=== PATIENT | male | born 1955 | race Asian ===

== ENCOUNTER 2021-11-20 13:36 | Emergency (ER) | payer MEDICARE, OTHER ==
[~2021-11-20] VITALS: Ht 182.9 cm; Wt 64.5 kg
[2021-11-20 13:44] VITALS: BP 152/57
[2021-11-20] MEDS ORDERED: ACETAMINOPHEN 325 MG TABLET PO ONE (14:30)
[2021-11-20] MEDS ORDERED: LIDOCAINE 5% TRANSDERMAL PATCH TD ONE (14:30)
[2021-11-20] MEDS ORDERED: IBUPROFEN 400 MG TABLET PO ONE (14:30)
== END 2021-11-20 18:31 | disposition home or self-care (01) ==
LOC: EMS 13:39
DX: M54.50 Low back pain, unspecified (principal); F17.210 Nicotine dependence, cigarettes, uncomplicated; W01.198A Fall on same level from slipping, tripping and stumbling with subsequent striking against other object, initial encounter; Y93.89 Activity, other specified; Y92.89 Other specified places as the place of occurrence of the external cause; Y99.8 Other external cause status
CPT/HCPCS: 72170; 99284; Z7502; Z7610

== ENCOUNTER 2023-12-24 03:02 | Inpatient (IN) | payer MEDICARE, OTHER ==
[~2023-12-24] VITALS: Ht 188 cm; Wt 65.3 kg
[2023-12-24 03:37] LABS: BASOPHILS % (AUTO) 0.2 % (0.0-2.0); EOSINOPHILS % (AUTO) 2.9 % (1.0-6.0); HEMATOCRIT 41.4 % (41-53); HEMOGLOBIN 14.1 g/dL (13.5-17.5); LYMPHOCYTES # (AUTO) 2.9 K/uL (1.0-4.8); LYMPHOCYTES % (AUTO) 31.9 % (22.0-44.0); MEAN CORPUSCULAR HEMOGLOBIN 31.8 pg (26.0-34.0); MEAN CORPUSCULAR HGB CONC 34.1 G/dL (31.0-37.0); MEAN CORPUSCULAR VOLUME 93 fL (80-100); MONOCYTES # (AUTO) 0.4 K/uL (0.1-1.0); MONOCYTES % (AUTO) 4.7 % (2.0-9.0); NEUTROPHILS # (AUTO) 5.5 K/uL (1.8-7.7); NEUTROPHILS % (AUTO) 60.3 % (40.0-70.0); PLATELET COUNT (AUTO) 289 K/uL (150-450); RED BLOOD CELL COUNT(AUTO) 4.44 MIL/uL (4.50-5.90); RED CELL DISTRIBUTION WIDTH 13.1 % (11.5-14.5); WHITE BLOOD COUNT (AUTO) 9.1 K/uL (4.5-11.0)
[2023-12-24 03:45] LABS: ANION GAP 6 mmol/L (8-16); CALCIUM, TOTAL 9.2 mg/dL (8.8-10.5); CARBON DIOXIDE 31 mmol/L (22-29); CHLORIDE 102 mmol/L (98-107); CREATININE 0.74 mg/dL (0.60-1.30); GLOMERULAR FILTR. RATE CALC > 60 mL/min (>60); GLUCOSE,RANDOM 115 mg/dL (70-110); POTASSIUM 4.7 mmol/L (3.5-5.1); SODIUM SERUM 139 mmol/L (136-145); UREA NITROGEN, BLOOD 36 mg/dL (7-18)
[2023-12-24 03:51] LABS: ALANINE AMINOTRANSFERASE 20 U/L (12-78); ALBUMIN 3.7 g/dL (3.4-5.0); ALKALINE PHOSPHATASE 65 U/L (46-116); ASPARTATE AMINOTRANSFERASE 17 U/L (15-37); BILIRUBIN,TOTAL 0.3 mg/dL (0.1-1.0); CREATINE KINASE, TOTAL ONLY 43 U/L (39-308); TOTAL PROTEIN, SERUM 7.6 g/dL (6.4-8.2)
[2023-12-24 03:52] LABS: TROPONIN I-HIGH SENSITIVITY 16 ng/L (<76)
[2023-12-24 03:58] LABS: B-TYPE NATRIURETIC PEPTIDE 11 pg/mL (0-100)
[2023-12-24] MEDS: ACETAMINOPHEN 500 MG TABLET PO ONE (04:05)
[2023-12-24 04:12] LABS: LIPASE 39 U/L (16-77)
[2023-12-24] MEDS: FAMOTIDINE 20 MG/2 ML VIAL IVP ONE (04:22)
[2023-12-24] MEDS: MAG HYDROX/ALUMINUM HYD/SIMETH 30 ML SUSPENSION UDCUP PO ONE (04:24)
[2023-12-24] MEDS ORDERED: IOHEXOL 350 MG/ML 100 ML VIAL ONE (04:27)
[2023-12-24] MEDS ORDERED: SODIUM CHLORIDE 0.9% 100 ML ONE (04:27)
[2023-12-24 04:30] VITALS: BP 111/63; PULSE 74; RESP 20; TEMP 97.9
[2023-12-24 07:29] LABS: COVID AG,FIA SOURCE NASAL SWAB
[2023-12-24 07:51] LABS: SARS-COV2 (COVID) ANTIGEN,FIA Negative (Negative)
[2023-12-24 12:00] LABS: TROPONIN I-HIGH SENSITIVITY 13 ng/L (<76)
[2023-12-24] MEDS ORDERED: MORPHINE SULFATE 2 MG/ML SYRINGE IVP PRN (14:15)
[2023-12-24] MEDS ORDERED: ONDANSETRON HCL 4 MG/2 ML VIAL IVP PRN (14:15)
[2023-12-24] MEDS ORDERED: BISACODYL 10 MG RECTAL RECTAL SUPPOSITORY PR PRN (14:15)
[2023-12-24] MEDS ORDERED: ACETAMINOPHEN 325 MG TABLET PO PRN (14:15)
[2023-12-24] MEDS ORDERED: ZOLPIDEM TARTRATE 5 MG TABLET PO PRN (14:15)
[2023-12-24] MEDS ORDERED: MAGNESIUM HYDROXIDE SUSPENSION 30 ML UDCUP PO PRN (14:15)
[2023-12-24] MEDS: HEPARIN SODIUM,PORCINE 5,000 UNITS/ML VIAL SQ SCH (18:18)
[2023-12-24 18:53] LABS: TROPONIN I-HIGH SENSITIVITY 10 ng/L (<76)
[2023-12-24 20:00] VITALS: BP 116/67; PULSE 92; RESP 18; TEMP 98; O2SAT 99
[2023-12-24] MEDS: PANTOPRAZOLE SODIUM 40 MG/VIAL IVP SCH (21:46)
[2023-12-24] MEDS: DOCUSATE SODIUM 100 MG CAPSULE PO SCH (21:46)
[2023-12-25] VITALS: BP 105/62; PULSE 67; RESP 18; TEMP 97; O2SAT 97
[2023-12-25 00:09] VITALS: BP 108/55; PULSE 62; RESP 16; TEMP 97.8
[2023-12-25 05:35] VITALS: BP 105/67; PULSE 63; RESP 16; TEMP 97.9
[2023-12-25 07:08] LABS: BASOPHILS % (AUTO) 0.3 % (0.0-2.0); EOSINOPHILS % (AUTO) 5.7 % (1.0-6.0); HEMATOCRIT 36.8 % (41-53); HEMOGLOBIN 12.6 g/dL (13.5-17.5); LYMPHOCYTES # (AUTO) 2.7 K/uL (1.0-4.8); LYMPHOCYTES % (AUTO) 38.3 % (22.0-44.0); MEAN CORPUSCULAR HEMOGLOBIN 31.5 pg (26.0-34.0); MEAN CORPUSCULAR HGB CONC 34.2 G/dL (31.0-37.0); MEAN CORPUSCULAR VOLUME 92 fL (80-100); MONOCYTES # (AUTO) 0.4 K/uL (0.1-1.0); MONOCYTES % (AUTO) 5.8 % (2.0-9.0); NEUTROPHILS # (AUTO) 3.6 K/uL (1.8-7.7); NEUTROPHILS % (AUTO) 49.9 % (40.0-70.0); PLATELET COUNT (AUTO) 273 K/uL (150-450); RED BLOOD CELL COUNT(AUTO) 3.98 MIL/uL (4.50-5.90); RED CELL DISTRIBUTION WIDTH 12.8 % (11.5-14.5); WHITE BLOOD COUNT (AUTO) 7.1 K/uL (4.5-11.0)
[2023-12-25 07:22] LABS: ANION GAP 4 mmol/L (8-16); CALCIUM, TOTAL 8.5 mg/dL (8.8-10.5); CARBON DIOXIDE 31 mmol/L (22-29); CHLORIDE 105 mmol/L (98-107); CREATININE 0.81 mg/dL (0.60-1.30); GLOMERULAR FILTR. RATE CALC > 60 mL/min (>60); GLUCOSE,RANDOM 103 mg/dL (70-110); SODIUM SERUM 140 mmol/L (136-145); UREA NITROGEN, BLOOD 27 mg/dL (7-18)
[2023-12-25 08:52] VITALS: BP 118/57; PULSE 62; RESP 18; TEMP 98.1
[2023-12-25] MEDS ORDERED: SODIUM CHLORIDE 0.9% 1,000 ML ONE (14:05)
[2023-12-25 17:34] VITALS: BP 114/53; PULSE 61; RESP 19; TEMP 97.8
[2023-12-25 19:15] VITALS: BP 111/60; PULSE 70; RESP 18; TEMP 97.9
[2023-12-25 19:57] LABS: PH,URINE DRUG SCREEN 5.5 (5.0-8.0)
[2023-12-25 20:03] LABS: ALCOHOL, URINE DRUG SCREEN NEGATIVE (NEGATIVE); AMPHET/METH SCREEN,URINE NEGATIVE (NEGATIVE); BARBITURATE SCREEN, URINE NEGATIVE (NEGATIVE); BENZODIAZEPINES SCREEN,URINE NEGATIVE (NEGATIVE); CANNABINOID SCREEN,URINE NEGATIVE (NEGATIVE); COCAINE SCREEN,URINE NEGATIVE (NEGATIVE); METHADONE SCREEN, URINE NEGATIVE (NEGATIVE); OPIATE SCREEN,URINE NEGATIVE (NEGATIVE); PHENCYCLIDINE SCREEN,URINE NEGATIVE (NEGATIVE)
[2023-12-26 00:08] VITALS: BP 109/59; PULSE 72; RESP 18; TEMP 97.7
[2023-12-26 04:09] VITALS: BP 113/60; PULSE 66; RESP 18; TEMP 97.9
[2023-12-26] MEDS ORDERED: PROPOFOL 1% 20 ML VIAL IVP ONE (06:15)
[2023-12-26] MEDS ORDERED: LIDOCAINE/PF 2% 5 ML VIAL IM ONE (06:15)
[2023-12-26 08:02] VITALS: BP 122/62; PULSE 88; RESP 17; TEMP 97.9
[2023-12-26 11:35] VITALS: BP 104/51; PULSE 70; RESP 17; TEMP 98.1
[2023-12-26] MEDS: HYDROCODONE/ACETAMINOPHEN 5-325 MG TABLET PO PRN (12:54)
[2023-12-26] MEDS ORDERED: PANT-31 PO (12:59)
== END 2023-12-26 15:10 | disposition home or self-care (01) | DRG 241 ==
LOC: EMS 03:04 → AHU 12:05 → 5S 14:27
PROVIDERS: ADMIT Internal Medicine; ATTEND Internal Medicine
PROC: 0DB78ZX Excision of Stomach, Pylorus, Via Natural or Artificial Opening Endoscopic, Diagnostic (ICD-10-PCS; principal; 2023-12-25 15:00)
DX: K25.9 Gastric ulcer, unspecified as acute or chronic, without hemorrhage or perforation (principal); G62.9 Polyneuropathy, unspecified; R73.9 Hyperglycemia, unspecified; Z20.822 Contact with and (suspected) exposure to COVID-19; Z87.891 Personal history of nicotine dependence
CPT/HCPCS: 71045; 74177; 80048; 80053; 80307; 82550; 83036; 83690; 83880; 84484; 85025; 88305; 88312; 88313; 93005; 93306; 99285; C9113; J1644; J2704; J3490; J7030; J7050; Q9967; 36415-L1; 36415-TC